=== PATIENT | female | born 1990 | race Hispanic/Latino ===

== ENCOUNTER 2017-12-08 20:43 | Emergency (ER) | payer OTHER, SELFPAY ==
[2017-12-08 21:46] LABS: Urine Blood NEGATIVE (NEG); Urine Glucose NEGATIVE (NEG); Urine Protein NEGATIVE (NEG); Urine Specific Gravity 1.025 (1.005-1.030)
[2017-12-08 21:52] LABS: Urine Bacteria 20-50 /HPF (<20); Urine Culture Reflex Order REFLEXED; Urine RBC NONE SEEN /HPF (NONE SEEN)
[2017-12-08 22:23] LABS: Absolute Monocytes 0.6 K/uL (0.1-1.3); Absolute Neutrophil 8.5 K/uL (1.8-8.0); Basophils % 0.4 % (0-1.3); Eosinophils % 1.2 % (0-4.4); Hematocrit 36.2 % (36.0-45.0); Lymphocytes % 17.3 % (15.3-44.8); MCH 28.4 pg (27.0-35.0); MPV 10.2 fL (7.6-11.3); Monocytes % 5.6 % (3.3-12.3); RBC Red Blood Cell Count 4.31 M/uL (3.86-4.86)
[2017-12-08 23:06] LABS: BUN Blood Urea Nitrogen 11 mg/dL (7-18); Bicarbonate 27 mmol/L (21-32); Glucose Level 95 mg/dL (74-106); HCG, Quantitative 68916 mIU/mL (1-3); Potassium 3.5 mmol/L (3.5-5.1); Sodium Level 137 mmol/L (136-145)
--- NOTE | 2017-12-09 00:11 | EDPHYS ---
Physician Documentation [facility] Name: Jill Fragoso Age: 27 yrs Sex: Female : 1990 Arrival Date: 12/08/2017 Time: 20:48 Bed 15 Private MD: ED Physician Darinel Gaines HPI: 12/08 22:40 This 27 yrs old Female presents to ER via Ambulatory with complaints of Low kdr Back Pain, 8 WEEKS PREG. 22:40 The patient presents with pain that is acute, with no known mechanism of injury. The kdr symptoms are located in the low back, lumbar area. The pain does not radiate. The problem was sustained without known cause. Onset: The symptoms/episode began/occurred suddenly, this morning, today. Modifying factors: The patient symptoms are alleviated by nothing, the patient symptoms are aggravated by any movement. Associated signs and symptoms: The patient has no apparent associated signs or symptoms. Severity of symptoms: At their worst the symptoms were mild, moderate, just prior to arrival, in the emergency department the symptoms are unchanged. The patient has not experienced similar symptoms in the past. The patient has not recently seen a physician. 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 - Social history:: Smoking status: Patient/guardian denies using tobacco. - Ebola Screening: : Patient negative for fever greater than or equal to 101.5 degrees Fahrenheit, and additional compatible Ebola Virus Disease symptoms Patient denies exposure to infectious person Patient denies travel to an Ebola-affected area in the 21 days before illness onset No symptoms or risks identified at this time. ROS: 22:40 Constitutional: Negative for fever, chills, and weight loss, Eyes: Negative for injury, kdr pain, redness, and discharge, ENT: Negative for injury, pain, and discharge, Neck: Negative for injury, pain, and swelling, Cardiovascular: Negative for chest pain, palpitations, and edema, Respiratory: Negative for shortness of breath, cough, wheezing, and pleuritic chest pain, Abdomen/GI: Negative for abdominal pain, nausea, vomiting, diarrhea, and constipation, : Negative for injury, bleeding, discharge, and swelling, MS/Extremity: Negative for injury and deformity, Skin: Negative for injury, rash, and discoloration, Neuro: Negative for headache, weakness, numbness, tingling, and seizure activity. Psych: Negative for depression, anxiety, suicide ideation, homicidal ideation, and hallucinations, Allergy/Immunology: Negative for hives, rash, and allergies, Endocrine: Negative for neck swelling, polydipsia, polyuria, polyphagia, and marked weight changes, Hematologic/Lymphatic: Negative for swollen nodes, abnormal bleeding, and unusual bruising. 22:40 Back: Positive for pain at rest, pain with movement. Exam: 12/09 00:11 Constitutional: This is a well developed, well nourished patient who is awake, alert, kdr and in no acute distress. Head/Face: Normocephalic, atraumatic. Eyes: Pupils equal round and reactive to light, extra-ocular motions intact. Lids and lashes normal. Conjunctiva and sclera are non-icteric and not injected. Cornea within normal limits. Periorbital areas with no swelling, redness, or edema. Neck: Trachea midline, no thyromegaly or masses palpated, and no cervical lymphadenopathy. Supple, full range of motion without nuchal rigidity, or vertebral point tenderness. No Meningismus. Chest/axilla: Normal chest wall appearance and motion. Nontender with no deformity. No lesions are appreciated. Cardiovascular: Regular rate and rhythm with a normal S1 and S2. No gallops, murmurs, or rubs. Normal PMI, no JVD. No pulse deficits. Respiratory: Lungs have equal breath sounds bilaterally, clear to auscultation and percussion. No rales, rhonchi or wheezes noted. No increased work of breathing, no retractions or nasal flaring. Abdomen/GI: Soft, non-tender, with normal bowel sounds. No distension or tympany. No guarding or rebound. No evidence of tenderness throughout. Skin: Warm, dry with normal turgor. Normal color with no rashes, no lesions, and no evidence of cellulitis. MS/ Extremity: Pulses equal, no cyanosis. Neurovascular intact. Full, normal range of motion. Neuro: Awake and alert, GCS 15, oriented to person, place, time, and situation. Cranial nerves II-XII grossly intact. Motor strength 5/5 in all extremities. Sensory grossly intact. Cerebellar exam normal. Normal gait. Psych: Awake, alert, with orientation to person, place and time. Behavior, mood, and affect are within normal limits. Abdomen/GI: Inspection: obese 00:11 Back: pain, that is mild, of the lumbar area. kdr Vital Signs: 12/08 20:54 BP 123 / 73; Pulse 84; Resp 18; Temp 98.6; Pulse Ox 100% on R/A; Weight 104.33 kg; aj Height 5 ft. 3 in. (160.02 cm); 22:37 BP 114 / 56; Pulse 88; Resp 18; Pulse Ox 100% ; ea 23:15 BP 120 / 60; Pulse 80; Resp 18; Pulse Ox 98% ; ea 12/09 00:31 BP 110 / 58; Pulse 82; Resp 18; Pulse Ox 99% on R/A; ea 12/08 20:54 Body Mass Index 40.74 (104.33 kg, 160.02 cm) aj MDM: 00:09 Patient medically screened. kdr 00:11 Data reviewed: vital signs, nurses notes, lab test result(s), radiologic studies. kdr Counseling: I had a detailed discussion with the patient and/or guardian regarding: the historical points, exam findings, and any diagnostic results supporting the discharge/admit diagnosis, lab results, radiology results, the need for outpatient follow up. 12/08 21:30 Order name: Urine Dipstick--Ancillary (enter results); Complete Time: 23:17 12/08 21:30 Order name: Urine --Ancillary (enter results); Complete Time: 23:17 bb 12/08 21:30 Order name: Urine Microscopic Only; Complete Time: 23:17 bb 12/08 21:39 Order name: Quantitative Hcg; Complete Time: 23:17 kdr 12/08 21:39 Order name: Abo/rh Typing; Complete Time: 23:17 kdr 12/08 21:39 Order name: Basic Metabolic Panel; Complete Time: 23:17 kdr 12/08 21:28 Order name: Urine Dipstick-Ancillary (obtain specimen); Complete Time: 21:30 12/08 21:28 Order name: Urine Test (obtain specimen); Complete Time: 21:30 bb 12/08 21:39 Order name: US Transvaginal Study (Probe) kdr 12/08 21:39 Order name: CBC with Diff; Complete Time: 23:17 kdr 12/08 21:39 Order name: IV Saline Lock; Complete Time: 22:20 kdr 12/08 21:39 Order name: Labs collected and sent; Complete Time: 22:20 kdr 12/08 21:54 Order name: Urine Culture EDME 12/08 21:39 Order name: NPO; Complete Time: 22:20 kdr 12/08 21:39 Order name: Urine Dipstick-Ancillary (obtain specimen); Complete Time: 22:20 kdr Administered Medications: 00:17 Drug: Tylenol #3 (300 mg-30 mg) 1 tablet Route: PO; ea 00:33 Follow up: Response: No adverse reaction ea Disposition: 12/09/17 00:09 Discharged to Home. Impression: Low back pain. - Condition is Stable. - Discharge Instructions: Musculoskeletal Pain, Back Pain, Adult, [id number]. - Prescriptions for Tylenol- Codeine #3 300-30 mg Oral Tablet - take 2 tablets by ORAL route every 6 hours As needed; 12 tablet. Macrobid 100 mg Oral Capsule - take 1 capsule by ORAL route every 12 hours for 7 days; 14 capsule. - Medication Reconciliation Form, Thank You Letter, Antibiotic Education form. - Follow up: Private Physician; When: 2 - 3 days; Reason: If symptoms return, Further diagnostic work-up, Recheck today's complaints, Continuance of care, Re-evaluation by your physician. - Problem is new. - Symptoms have improved. Signatures: Dispatcher [employer] Marla Woo RN RN aj Rittger, Kevin, MD MD kdr Ballard, Brenda, RN RN bb Antunez, Elena, RN RN ea Corrections: (The following items were deleted from the chart) 00:32 00:09 12/09/2017 00:09 Discharged to Home. Impression: Low back pain. Condition is ea Stable. Forms are Medication Reconciliation Form, Thank You Letter, Antibiotic Education, Prescription Opioid Use. Follow up: Private Physician; When: 2 - 3 days; Reason: If symptoms return, Further diagnostic work-up, Recheck today's complaints, Continuance of care, Re-evaluation by your physician. Problem is new. Symptoms have improved. kdr
--- NOTE | 2017-12-09 00:11 | ER ---
Nurse's Notes [facility] Name: Jill Fragoso Age: 27 yrs Sex: Female : 1990 Arrival Date: 12/08/2017 Time: 20:48 Bed 15 Private MD: Diagnosis: Low back pain Presentation: 12/08 20:53 Presenting complaint: Patient states: Lower back pain that started today, denies aj vaginal bleeding. Transition of care: patient was not received from another setting of care. Onset of symptoms was December 08, 2017. Risk Assessment: Do you want to hurt yourself or someone else? Patient reports no desire to harm self or others. Initial Sepsis Screen: Does the patient meet any 2 criteria? No. Patient's initial sepsis screen is negative. Does the patient have a suspected source of infection? No. Patient's initial sepsis screen is negative. Care prior to arrival: None. 20:53 Method Of Arrival: Ambulatory aj 20:53 Acuity: HUDSON 3 aj Triage Assessment: 20:54 General: Appears in no apparent distress. comfortable, Behavior is calm, cooperative, aj appropriate for age. Pain: Complains of pain in buttocks. Neuro: Level of Consciousness is awake, alert, obeys commands, Oriented to person, place, time, situation, Appropriate for age. Respiratory: Airway is patent Respiratory effort is even, unlabored, Respiratory pattern is regular, symmetrical. : Reports pain in lower back. Derm: Skin is intact, is healthy with good turgor, Skin is pink, warm \T\ dry. normal. 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 - Social history:: Smoking status: Patient/guardian denies using tobacco. - Ebola Screening: : Patient negative for fever greater than or equal to 101.5 degrees Fahrenheit, and additional compatible Ebola Virus Disease symptoms Patient denies exposure to infectious person Patient denies travel to an Ebola-affected area in the 21 days before illness onset No symptoms or risks identified at this time. Screenin:15 Abuse screen: Denies threats or abuse. Nutritional screening: No deficits noted. ea Tuberculosis screening: No symptoms or risk factors identified. Fall Risk None identified. Assessment: 22:18 General: Appears in no apparent distress. Pain: Complains of pain in lumbar area, ea sacrum, left low back and right low back Pain does not radiate. Pain currently is 8 out of 10 on a pain scale. Aggravated by increased activity. Neuro: Level of Consciousness is awake, alert, obeys commands, Oriented to person, place, time, situation. Cardiovascular: Patient's skin is warm and dry. Cardiovascular: Heart tones S1 S2 present. Respiratory: Airway is patent Respiratory effort is even, unlabored, Respiratory pattern is regular, symmetrical. Respiratory: Breath sounds are clear bilaterally. GI: No signs and/or symptoms were reported involving the gastrointestinal system. : No signs and/or symptoms were reported regarding the genitourinary system. EENT: No signs and/or symptoms were reported regarding the EENT system. Derm: Skin is pink, warm \T\ dry. 22:20 Reassessment: Patient and/or family updated on plan of care and expected duration. Pain ea level reassessed. Patient is alert, oriented x 3, equal unlabored respirations, skin warm/dry/pink. Pt taken to ultrasound. 22:35 Reassessment: Patient and/or family updated on plan of care and expected duration. Pain ea level reassessed. Patient is alert, oriented x 3, equal unlabored respirations, skin warm/dry/pink. Pt returned from ultrasound. 23:30 Reassessment: Patient and/or family updated on plan of care and expected duration. Pain ea level reassessed. Patient is alert, oriented x 3, equal unlabored respirations, skin warm/dry/pink. 12/09 00:23 Reassessment: Patient and/or family updated on plan of care and expected duration. Pain ea level reassessed. Patient is alert, oriented x 3, equal unlabored respirations, skin warm/dry/pink. Discharge instructions given to patient, verbalized the instruction. Vital Signs: 12/08 20:54 BP 123 / 73; Pulse 84; Resp 18; Temp 98.6; Pulse Ox 100% on R/A; Weight 104.33 kg; aj Height 5 ft. 3 in. (160.02 cm); 22:37 BP 114 / 56; Pulse 88; Resp 18; Pulse Ox 100% ; ea 23:15 BP 120 / 60; Pulse 80; Resp 18; Pulse Ox 98% ; ea 12/09 00:31 BP 110 / 58; Pulse 82; Resp 18; Pulse Ox 99% on R/A; ea 12/08 20:54 Body Mass Index 40.74 (104.33 kg, 160.02 cm) ED Course: 12/08 20:48 Patient arrived in ED. al2 20:54 Triage completed. aj 20:54 Arm band placed on left wrist. Patient placed in waiting room. aj 21:35 Darinel Gaines MD is Attending Physician. kdr 22:01 Inserted saline lock: 20 gauge in right antecubital area, using aseptic technique. mw2 Blood collected. 22:04 Ultrasound completed. Patient tolerated well. sg3 22:16 US Transvaginal Study (Probe) In Process Unspecified. EDMS 22:18 Patient has correct armband on for positive identification. Bed in low position. Call ea light in reach. Side rails up X2. 22:19 Idalmis Vance, RN is Primary Nurse. ea 12/09 00:23 No provider procedures requiring assistance completed. IV discontinued, intact, ea bleeding controlled, No redness/swelling at site. Pressure dressing applied. Administered Medications: 00:17 Drug: Tylenol #3 (300 mg-30 mg) 1 tablet Route: PO; ea 00:33 Follow up: Response: No adverse reaction ea Outcome: 00:09 Discharge ordered by . kdr 00:23 Discharged to home ambulatory, with friend. ea 00:23 Condition: improved 00:23 Discharge instructions given to patient, Instructed on discharge instructions, follow up and referral plans. medication usage, Demonstrated understanding of instructions, follow-up care, medications, Prescriptions given X 2. 00:32 Patient left the ED. ea Signatures: Dispatcher [employer] Marla Mata RN RN aj Rittger, Kevin, MD MD kdr Antunez, Elena, RN RN ea Godinez, Sarah sg3 Jenny Velasquez al2 Jeannine Mcdonald mw2 Corrections: (The following items were deleted from the chart) 12/08 22:38 22:35 Reassessment: Patient and/or family updated on plan of care and expected ea duration. Pain level reassessed. Patient is alert, oriented x 3, equal unlabored respirations, skin warm/dry/pink. ea
[2017-12-09] MEDS ORDERED: CODEINE 30MG/APAP 300MG TAB ONE (00:15)
[2017-12-09 00:45] VITALS: TEMP 98.6
[2017-12-09 00:49] VITALS: BP 110/58; O2SAT 99
--- NOTE | 2017-12-09 17:41 | RAD REPORT ---
EXAM DESCRIPTION: US - Transvaginal Study Probe - 12/08/2017 10:16 pm CLINICAL HISTORY: Pelvic pain. COMPARISON: none FINDINGS: A preliminary report was generated by virtual radiologic and reviewed prior to this dictat ion The uterus measures 14 x 5 x 10cm. The evaluation was somewhat suboptimal secondary to body habitus. A gestational sac is present within the endometrium. Within this is a pole with a crown-rump le ngth 2.4 centimeters. Cardiac activity 169 beats per minute. Neither ovary was seen. An adnexal mass is not visualized. No significant free fluid is noted IMPRESSION: Single live intrauterine with an estimated gestational 9 weeks 3 days BRITNEY 020 10/2018
== END 2017-12-09 00:32 | disposition home or self-care (01) ==
LOC: ER 20:43
DX: M54.5 Low back pain (principal); Z3A.09 9 weeks gestation of pregnancy
CPT/HCPCS: 36415; 76830; 80048; 81003; 81015; 81025; 84702; 85025; 86900; 86901; 87086; 87088; 99284